=== PATIENT | male | born 1980 | race Caucasian/White ===

== ENCOUNTER 2020-07-12 19:44 | Emergency (ER) | payer SELFPAY ==
[~2020-07-12] VITALS: Ht 180.3 cm; Wt 90.0 kg
[2020-07-12 20:13] VITALS: BP 151/90
--- NOTE | 2020-07-12 20:20 | PHYS DOC ---
General Adult EDM: Chief Complaint: ABSCESS HPI: HPI: The history was obtained from the patient. Patient is a 40-year-old male with no reported PMH who presents with a chief complaint of right thigh rash. Patient states that he noticed right thigh rash since yesterday. States it is red and quite painful to touch. Denies any drainage from the wound. Denies testicular pain or swelling. Denies penile discharge. Denies dysuria or hematuria. Denies pain with bowel movements. States he is currently homeless. Denies daily alcohol usage or IV drug usage. Denies fevers. Does note some bite wounds to his feet bilaterally. Does note some mild suprapubic abdominal discomfort. Denies nausea or vomiting. Denies syncope. Denies previous surgical history. No other complaints Review of Systems: Review of Systems: Constitutional: Denies fever or chills. [] Eyes: Denies change in visual acuity. [] HENT: Denies nasal congestion or sore throat. [] Respiratory: Denies cough or shortness of breath. [] Cardiovascular: Denies chest pain or edema. [] GI: Positive for abdominal pain : Denies dysuria. [] Musculoskeletal: Denies back pain or joint pain. [] Integument: Positive for rash Neurologic: Denies headache, focal weakness or sensory changes. [] Endocrine: Denies polyuria or polydipsia. [] Lymphatic: Denies swollen glands. [] Psychiatric: Denies depression or anxiety. [] Heart Score: Risk Factors: Risk Factors: DM, Current or recent (<one month) smoker, HTN, HLP, family history of CAD, obesity. Risk Scores: Score 0 - 3: 2.5% MACE over next 6 weeks - Discharge Home Score 4 - 6: 20.3% MACE over next 6 weeks - Admit for Clinical Observation Score 7 - 10: 72.7% MACE over next 6 weeks - Early Invasive Strategies Physical Exam: PE: Constitutional: Well developed, well nourished, no acute distress, non-toxic appearance. [] HENT: Normocephalic, atraumatic, bilateral external ears normal, oropharynx moist, no oral exudates, nose normal. [] Eyes: PERRLA, EOMI, conjunctiva normal, no discharge. [] Neck: Normal range of motion, no tenderness, supple, no stridor. [] Cardiovascular:Heart rate regular rhythm, no murmur [] Lungs & Thorax: Bilateral breath sounds clear to auscultation [] Abdomen: Soft, nontender, nonacute abdomen. No involuntary guarding or rigidity noted. No acute peritonitis. : No testicular swelling or tenderness noted. No crepitus palpated. No overlying skin changes. Right medial proximal thigh with flat erythematous and painful rash noted. Appears consistent with severe tinea cruris Skin: Warm, dry, no erythema, no rash. [] Back: No tenderness, no CVA tenderness. [] Extremities: No tenderness, no cyanosis, no clubbing, ROM intact, no edema. [] Neurologic: Alert and oriented X 3, normal motor function, normal sensory function, no focal deficits noted. [] Psychologic: Affect normal, judgement normal, mood normal. [] Current Patient Data: Vital Signs: Vital Signs Date Time Temp Pulse Resp B/P (MAP) Pulse Ox O2 Delivery O2 Flow Rate FiO2 07/12/20 20:13 98.6 88 16 151/90 (110) 97 Room Air 98.6 Vital Signs Date Time Temp Pulse Resp B/P (MAP) Pulse Ox O2 Delivery O2 Flow Rate FiO2 07/12/20 20:13 98.6 88 16 151/90 (110) 97 Room Air 98.6 EKG: EKG: [] Radiology/Procedures: Radiology/Procedures: [] Course & Med Decision Making: Course & Med Decision Making Pertinent Labs and Imaging studies reviewed. (See chart for details) [] Prior to obtaining labs and imaging the patient did elope from the emergency department. Nursing stated that the patient was frustrated that the incorrect name was placed into the chart which upset the patient. Verbal de-escalation was attempted. Patient eloped from emergency department. Dragon Disclaimer: Dragon Disclaimer: This electronic medical record was generated, in whole or in part, using a voice recognition dictation system. Departure Departure Impression: Primary Impression: Rash Disposition: AGAINST MEDICAL ADVICE Condition: STABLE Referrals: NO PCP (PCP) Justicifation of Admission Dx: Justifications for Admission: Justification of Admission Dx: N/A CHARIS HALL DO Jul 12, 2020 20:20
[2020-07-12] MEDS ORDERED: IV NORMAL SALINE 1000ML BAG 1,000 ML IV ONE (20:30)
[2020-07-12] MEDS ORDERED: MORPHINE SULFATE 4 MG/ML VIAL. IV ONE (20:30)
== END 2020-07-12 20:39 | disposition left against medical advice (07) ==
LOC: ER 19:44
DX: R21 Rash and other nonspecific skin eruption (principal)
CPT/HCPCS: 99281